=== PATIENT | female | born 1950 | race Caucasian/White ===

== ENCOUNTER 2017-06-04 14:40 | Outpatient (CLI) | payer MEDICARE, OTHER ==
[2017-06-04 19:27] LABS: BASOPHILS % (AUTO) 0.5 %; EOSINOPHILS # (AUTO) 0.2 10^3/uL (0.0-0.7); EOSINOPHILS % (AUTO) 2.8 %; HCT - HEMATOCRIT 42.9 % (37.0-47.0); HGB - HEMOGLOBIN 14.2 g/dL (12.0-16.0); LYMPHOCYTES # (AUTO) 2.1 10^3/uL (1.5-3.5); LYMPHOCYTES % (AUTO) 27.2 %; MEAN CORPUSCULAR HEMOGLOBIN 31.2 pg (27.0-31.0); MEAN CORPUSCULAR HGB CONC 33.2 g/dL (32.0-36.0); MEAN PLATELET VOLUME 8.8 fL (7.9-10.8); MONOCYTES # (AUTO) 0.5 10^3/uL (0.0-1.0); MONOCYTES % (AUTO) 6.3 %; NEUTROPHILS # (AUTO) 4.8 10^3/uL (1.5-6.6); NEUTROPHILS % (AUTO) 63.2 %; NUCLEATED RED BLOOD CELLS AUTO 0.1 /100WBC; RED BLOOD COUNT 4.56 10^6/uL (4.20-5.40); RED CELL DISTRIBUTION WIDTH 12.6 % (12.0-15.0); UNCORRECTED WHITE BLOOD COUNT 7.6 x10^3/uL; WHITE BLOOD COUNT 7.6 x10^3/uL (4.8-10.8)
[2017-06-04 19:56] LABS: ALBUMIN/GLOBULIN RATIO 1.4 (1.0-2.2); BILIRUBIN,TOTAL 0.7 mg/dL (0.2-1.0); BUN - BLOOD UREA NITROGEN 10 mg/dL (6-20); CALCIUM 8.8 mg/dL (8.5-10.3); CARBON DIOXIDE - CO2 27 mmol/L (21-32); CHLORIDE 102 mmol/L (101-111); CHOL/HDL RATIO 7.3 (<4.4); CHOLESTEROL 247 mg/dL; CREATININE 0.6 mg/dL (0.4-1.0); GFR - MDRD 99 (>89); GLUCOSE 100 mg/dL (70-100); HDL CHOLESTEROL 34 mg/dL; LDL/HDL RATIO 4.7 (<4.4); SODIUM 136 mmol/L (135-145); TOTAL PROTEIN 7.3 g/dL (6.7-8.2); TRIGLYCERIDES 266 mg/dL; VLDL CHOLESTEROL 53 mg/dL
== END 2017-06-04 14:41 | disposition home or self-care (01) ==
LOC: LAB.WCP 14:40
PROVIDERS: ATTEND Physician Assistant Medical
DX: E78.5 Hyperlipidemia, unspecified (principal); R05 Cough
CPT/HCPCS: 36415; 80053; 80061; 85025

== ENCOUNTER 2018-03-14 14:42 | Outpatient (CLI) | payer MEDICARE, OTHER ==
[2018-03-14 18:46] LABS: BILIRUBIN,URINE NEGATIVE (NEGATIVE); GLUCOSE, URINE (UA) NEGATIVE (NEGATIVE); KETONES,URINE (UA) NEGATIVE (NEGATIVE); LEUKOCYTE ESTERASE, URINE NEGATIVE (NEGATIVE); NITRITE,URINE NEGATIVE (NEGATIVE); OCCULT BLOOD,URINE NEGATIVE (NEGATIVE); PH,URINE 5.5 PH (5.0-7.5); PROTEIN,URINE NEGATIVE (NEGATIVE); UROBILINOGEN,URINE 0.2 (NORMAL) E.U./dL (NORMAL)
[2018-03-14 18:48] LABS: CLARITY,URINE CLEAR (CLEAR)
[2018-03-14 18:49] LABS: BASOPHILS % (AUTO) 0.4 %; EOSINOPHILS # (AUTO) 0.2 10^3/uL (0.0-0.7); HGB - HEMOGLOBIN 13.9 g/dL (12.0-16.0); LYMPHOCYTES # (AUTO) 2.5 10^3/uL (1.5-3.5); MEAN CORPUSCULAR HEMOGLOBIN 31.1 pg (27.0-31.0); MEAN CORPUSCULAR HGB CONC 33.2 g/dL (32.0-36.0); MEAN CORPUSCULAR VOLUME 93.5 fL (81.0-99.0); MEAN PLATELET VOLUME 8.3 fL (7.9-10.8); MONOCYTES # (AUTO) 0.6 10^3/uL (0.0-1.0); MONOCYTES % (AUTO) 7.5 %; NEUTROPHILS # (AUTO) 4.2 10^3/uL (1.5-6.6); NEUTROPHILS % (AUTO) 56.1 %; PLT - PLATELET COUNT 284 10^3/uL (130-450); RED BLOOD COUNT 4.46 10^6/uL (4.20-5.40); RED CELL DISTRIBUTION WIDTH 13.3 % (12.0-15.0); WHITE BLOOD COUNT 7.5 x10^3/uL (4.8-10.8)
[2018-03-14 19:04] LABS: ALBUMIN 4.2 g/dL (3.2-5.5); ALBUMIN/GLOBULIN RATIO 1.3 (1.0-2.2); ALKALINE PHOSPHATASE 59 IU/L (42-121); ALT ALANINE AMINOTRANSFERASE 21 IU/L (10-60); AST ASPARTATE AMINOTRANSFERASE 26 IU/L (10-42); BILIRUBIN,TOTAL 0.8 mg/dL (0.2-1.0); BUN - BLOOD UREA NITROGEN 12 mg/dL (6-20); CALCIUM 9.1 mg/dL (8.5-10.3); CARBON DIOXIDE - CO2 26 mmol/L (21-32); CHLORIDE 100 mmol/L (101-111); CHOL/HDL RATIO 6.2 (<4.4); CHOLESTEROL 255 mg/dL; CREATININE 0.6 mg/dL (0.4-1.0); GFR - MDRD 99 (>89); GLUCOSE 106 mg/dL (70-100); HDL CHOLESTEROL 41 mg/dL; LDL CHOLESTEROL,CALCULATED 172 mg/dL; LDL/HDL RATIO 4.2 (<4.4); SODIUM 137 mmol/L (135-145); TOTAL PROTEIN 7.5 g/dL (6.7-8.2); VLDL CHOLESTEROL 42 mg/dL
[2018-03-14 19:05] LABS: BACTERIA,URINE Few /HPF (None Seen); RBC,URINE 0-5 /HPF (0-5); SQUAMOUS EPITHELIAL CELL,UR MOD Squamous (<= Few)
[2018-03-14 19:06] LABS: YEAST,URINE PRESENT
== END 2018-03-14 14:43 | disposition home or self-care (01) ==
LOC: LAB.WCP 14:42
PROVIDERS: ATTEND Physician Assistant Medical
DX: R73.9 Hyperglycemia, unspecified (principal); E78.5 Hyperlipidemia, unspecified; R35.0 Frequency of micturition
CPT/HCPCS: 36415; 80053; 80061; 81001; 83721; 85025; 87086

== ENCOUNTER 2019-02-11 13:00 | Outpatient (CLI) | payer MEDICARE, OTHER ==
[2019-02-11] MEDS ORDERED: ALBUTEROL NEB 2.5 MG/3 ML INH SCH (13:59)
== END 2019-02-11 13:01 | disposition home or self-care (01) ==
LOC: RT 13:00
PROVIDERS: ATTEND Physician Assistant Medical
DX: R06.02 Shortness of breath (principal); Z87.891 Personal history of nicotine dependence
CPT/HCPCS: 94060

== ENCOUNTER 2019-05-01 14:54 | Outpatient (CLI) | payer MEDICARE, OTHER ==
--- NOTE | 2019-05-02 15:54 | XRAY Report ---
Reason: COPD Procedure Date: 05/01/2019 Accession Number: [id number] / [id number] Procedure: XRN - Chest 2 View X-Ray CPT Code: 71322 FULL RESULT: EXAM: CHEST RADIOGRAPHY VIEWS EXAM DATE: 05/01/2019. CLINICAL HISTORY: COPD. COMPARISON: PA and lateral chest on 06/04/2017. TECHNIQUE: PA and lateral views. FINDINGS: Lungs/Pleura: Normal vasculature. Infiltrate in the posterior inferior right lower lobe. The left lung is clear. No pleural fluid or pneumothorax. Mediastinum: Normal cardiac and mediastinal contours. Bones: Degenerative changes of the spine. IMPRESSION: Right lower lobe infiltrate, most likely pneumonia. Recommend follow-up chest radiography in 2-3 weeks to confirm clearing. RADIA
== END 2019-05-01 14:55 | disposition home or self-care (01) ==
LOC: DI.N 14:54
PROVIDERS: ATTEND Family Medicine
DX: R91.8 Other nonspecific abnormal finding of lung field (principal)
CPT/HCPCS: 71046

== ENCOUNTER 2019-05-01 16:00 | Outpatient (CLI) | payer MEDICARE, OTHER ==
--- NOTE | 2019-05-01 16:21 | Mammography Report ---
Reason: SCREENING MAMMO Procedure Date: 05/01/2019 Accession Number: [id number] / [id number] Procedure: MGN - Screening Mammo Dig Bilat CPT Code: FULL RESULT: EXAM: Screening Mammo Dig Bilat DATE: 05/01/2019 4:03 PM CLINICAL HISTORY: New baseline TECHNIQUE: (B) - Bilateral CC and MLO views were obtained. COMPARISON: None PARENCHYMAL PATTERN: (D) - The breasts demonstrate heterogeneously dense fibroglandular parenchyma bilaterally. FINDINGS: There are no suspicious masses, calcifications, or areas of distortion. IMPRESSION: Negative examination. BI-RADS category 1. RECOMMENDATION: (ANNUAL) - Recommend routine annual screening mammography. BI-RADS CATEGORY: (1) - Negative. STANDARD QUALIFYING STATEMENTS: 1. This examination was not reviewed with the aid of Computer-Aided Detection (CAD). 2. A negative or benign imaging report should not preclude biopsy if clinically suspicious findings are present. 3. Dense breasts may obscure an underlying neoplasm. 4. This examination was reviewed without the aid of 3D breast imaging (tomosynthesis).
== END 2019-05-01 23:59 | disposition home or self-care (01) ==
LOC: DI.N 16:00
DX: Z12.31 Encounter for screening mammogram for malignant neoplasm of breast (principal)
CPT/HCPCS: 77067

== ENCOUNTER 2019-05-22 12:53 | Outpatient (CLI) | payer MEDICARE, OTHER ==
--- NOTE | 2019-05-22 15:10 | XRAY Report ---
Reason: PNEUMONIA Procedure Date: 05/22/2019 Accession Number: [id number] / [id number] Procedure: XRN - Chest 2 View X-Ray CPT Code: 61604 FULL RESULT: EXAM: CHEST RADIOGRAPHY EXAM DATE: 05/22/2019 01:07 PM. CLINICAL HISTORY: Pneumonia. COMPARISON: CHEST 2 VIEW 05/01/2019 4:04 PM. TECHNIQUE: 2 views. FINDINGS: Lungs/Pleura: There has been little change in the posterior basilar right lower lobe consolidation compared to prior examination. The lungs are otherwise clear. Stable tiny right pleural effusion. Mediastinum: Heart and mediastinal contours are unremarkable. Other: None. IMPRESSION: There has been little change in the posterior basilar right lower lobe consolidation most consistent with pneumonia. Recommend continued follow-up. Otherwise negative exam. RADIA
== END 2019-05-22 12:54 | disposition home or self-care (01) ==
LOC: DI.N 12:53
PROVIDERS: ATTEND Family Medicine
DX: J18.9 Pneumonia, unspecified organism (principal)
CPT/HCPCS: 71046

== ENCOUNTER 2019-06-12 10:55 | Outpatient (CLI) | payer MEDICARE, OTHER ==
--- NOTE | 2019-06-12 14:17 | XRAY Report ---
Reason: PNEUMONIA Procedure Date: 06/12/2019 Accession Number: [id number] / [id number] Procedure: XRN - Chest 2 View X-Ray CPT Code: 78586 FULL RESULT: EXAM: CHEST RADIOGRAPHY EXAM DATE: 06/12/2019 11:08 AM. CLINICAL HISTORY: PNEUMONIA. COMPARISON: CHEST 2 VIEW 05/22/2019 1:13 PM CHEST 2 VIEW PA/LAT 05/25/2016 3:18 PM CHEST 2 VIEW PA/LAT 06/04/2017 2:22 PM CHEST 2 VIEW 05/01/2019 4:04 PM. TECHNIQUE: 2 views. FINDINGS: Lungs/Pleura: Increasing airspace disease right base with associated pleural effusion. Clear left lung without pleural effusion. No pneumothorax.. Mediastinum: Heart size difficult to assess due to the pleural effusion. Other: None. IMPRESSION: Worsening right basilar airspace disease and associated pleural effusion compared with 05/01/2020 and 05/22/2020. Consider contrast-enhanced chest CT. RADIA
== END 2019-06-12 10:56 | disposition home or self-care (01) ==
LOC: DI.N 10:55
PROVIDERS: ATTEND Family Medicine
DX: J18.9 Pneumonia, unspecified organism (principal)
CPT/HCPCS: 71046

== ENCOUNTER 2019-06-26 11:01 | Outpatient (CLI) | payer MEDICARE, OTHER ==
[~2019-06-26 11:01] MED LIST: IOVERSOL 320 100 ML VIAL IVP ONE
[2019-06-26 11:23] LABS: CALCIUM 8.9 mg/dL (8.5-10.3); CREATININE 0.5 mg/dL (0.4-1.0)
[2019-06-26] MEDS ORDERED: IOVERSOL 320 100 ML VIAL IVP ONE ×2 (11:43→15:39)
--- NOTE | 2019-06-26 13:44 | CT Report ---
Reason: PNEUMONIA Procedure Date: 06/26/2019 Accession Number: [id number] / [id number] Procedure: CT - CHEST W CPT Code: Final Report FULL RESULT: EXAM: CT CHEST EXAM DATE: 06/26/2019 12:00 PM. CLINICAL HISTORY: Pneumonia. COMPARISONS: None. TECHNIQUE: Routine helical CT imaging was performed through the chest. IV contrast: None. Reconstructions: Coronal and sagittal. In accordance with CT protocol optimization, one or more of the following dose reduction techniques were utilized for this exam: automated exposure control, adjustment of mA and/or KV based on patient size, or use of iterative reconstructive technique. FINDINGS: Lungs/Pleura: There is a moderate to large right pleural effusion which ranges from the low density to intermediate density. No definite hematocrit level is seen. While there is small amount of subsegmental consolidation on the right, there is no lobar consolidation to suggest a significant pulmonary parenchymal etiology underlying the effusion. There is no pulmonary edema. No pneumothorax. Mediastinum: Prominent lymph nodes in the mediastinum do not meet size criteria. A prominent right hilar lymph node measures up to 1.1 cm in short axis, image 52 series 3. Bones: Unremarkable. Visualized Abdomen: Additionally, there is a small amount of perisplenic and perihepatic free fluid in the visualized abdomen. Other: None. IMPRESSION: Moderate to large right low to intermediate density pleural effusion as well as ascites without convincing pulmonary consolidation to corroborate lobar pneumonia. RADIA
== END 2019-06-26 11:02 | disposition home or self-care (01) ==
LOC: LAB 11:01
PROVIDERS: ATTEND Family Medicine
DX: E74.9 Disorder of carbohydrate metabolism, unspecified (principal); E78.00 Pure hypercholesterolemia, unspecified; R53.83 Other fatigue; J90 Pleural effusion, not elsewhere classified; R18.8 Other ascites
CPT/HCPCS: 36415; 71260; 80048; Q9967

== ENCOUNTER 2019-07-07 10:58 | Outpatient (CLI) | payer MEDICARE, OTHER ==
[2019-07-07 11:54] LABS: INR 1.1 (0.8-1.2); PT - PROTHROMBIN TIME 12.3 secs (9.9-12.6)
[2019-07-07 12:01] LABS: PARTIAL THROMBOPLASTIN TIME 33.5 secs (24.9-33.3)
== END 2019-07-07 10:59 | disposition home or self-care (01) ==
LOC: LAB 10:58
PROVIDERS: ATTEND Family Medicine
DX: J90 Pleural effusion, not elsewhere classified (principal); J18.9 Pneumonia, unspecified organism; J91.8 Pleural effusion in other conditions classified elsewhere
CPT/HCPCS: 36415; 85610; 85730

== ENCOUNTER 2019-07-14 14:46 | Outpatient (CLI) | payer MEDICARE, OTHER ==
[2019-07-14 18:37] LABS: BASOPHILS % (AUTO) 0.4 %; EOSINOPHILS # (AUTO) 0.2 10^3/uL (0.0-0.7); EOSINOPHILS % (AUTO) 3.6 %; HGB - HEMOGLOBIN 14.2 g/dL (12.0-16.0); LYMPHOCYTES # (AUTO) 1.7 10^3/uL (1.5-3.5); MEAN CORPUSCULAR HEMOGLOBIN 29.8 pg (27.0-31.0); MEAN CORPUSCULAR VOLUME 93.3 fL (81.0-99.0); MEAN PLATELET VOLUME 10.1 fL (7.9-10.8); MONOCYTES # (AUTO) 0.6 10^3/uL (0.0-1.0); MONOCYTES % (AUTO) 11.9 %; NEUTROPHILS # (AUTO) 2.5 10^3/uL (1.5-6.6); NEUTROPHILS % (AUTO) 49.9 %; PLT - PLATELET COUNT 312 10^3/uL (130-450); RED BLOOD COUNT 4.76 10^6/uL (4.20-5.40); RED CELL DISTRIBUTION WIDTH 12.7 % (12.0-15.0)
== END 2019-07-14 23:59 | disposition home or self-care (01) ==
LOC: LAB.N 14:46
PROVIDERS: ATTEND Family Medicine
DX: Z00.00 Encounter for general adult medical examination without abnormal findings (principal); J18.9 Pneumonia, unspecified organism
CPT/HCPCS: 36415; 85025

== ENCOUNTER 2020-03-05 14:30 | Outpatient (CLI) | payer MEDICARE, OTHER ==
[2020-03-05 15:02] LABS: BASOPHILS % (AUTO) 0.3 %; EOSINOPHILS # (AUTO) 0.2 10^3/uL (0.0-0.7); EOSINOPHILS % (AUTO) 2.9 %; HGB - HEMOGLOBIN 13.7 g/dL (12.0-16.0); LYMPHOCYTES # (AUTO) 2.3 10^3/uL (1.5-3.5); LYMPHOCYTES % (AUTO) 35.5 %; MEAN CORPUSCULAR HEMOGLOBIN 30.3 pg (27.0-31.0); MEAN CORPUSCULAR HGB CONC 32.5 g/dL (32.0-36.0); MEAN CORPUSCULAR VOLUME 93.1 fL (81.0-99.0); MEAN PLATELET VOLUME 9.8 fL (7.9-10.8); MONOCYTES # (AUTO) 0.5 10^3/uL (0.0-1.0); MONOCYTES % (AUTO) 7.6 %; NEUTROPHILS # (AUTO) 3.4 10^3/uL (1.5-6.6); NEUTROPHILS % (AUTO) 53.4 %; PLT - PLATELET COUNT 281 10^3/uL (130-450); RED BLOOD COUNT 4.52 10^6/uL (4.20-5.40); RED CELL DISTRIBUTION WIDTH 12.5 % (12.0-15.0); WHITE BLOOD COUNT 6.5 x10^3/uL (4.8-10.8)
[2020-03-05 15:04] LABS: ALBUMIN 4.2 g/dL (3.2-5.5); ALBUMIN/GLOBULIN RATIO 1.6 (1.0-2.2); BILIRUBIN,TOTAL 0.5 mg/dL (0.2-1.0); CALCIUM 8.9 mg/dL (8.5-10.3); CREATININE 0.6 mg/dL (0.4-1.0); TOTAL PROTEIN 6.9 g/dL (6.7-8.2)
== END 2020-03-05 14:31 | disposition home or self-care (01) ==
LOC: LAB 14:30
PROVIDERS: ATTEND Internal Medicine
DX: J90 Pleural effusion, not elsewhere classified (principal); Z13.6 Encounter for screening for cardiovascular disorders; Z79.899 Other long term (current) drug therapy; R19.00 Intra-abdominal and pelvic swelling, mass and lump, unspecified site; Z11.59 Encounter for screening for other viral diseases
CPT/HCPCS: 36415; 80053; 85025; U0004

== ENCOUNTER 2021-07-02 09:49 | Outpatient (CLI) | payer MEDICARE, OTHER | END 2021-07-02 09:50 | disposition home or self-care (01) | LOC: DI.N 09:49 | PROVIDERS: ATTEND Internal Medicine | DX: Z53.9 Procedure and treatment not carried out, unspecified reason (principal) ==

== ENCOUNTER 2021-07-21 13:03 | Outpatient (CLI) | payer MEDICARE, OTHER ==
--- NOTE | 2021-07-21 13:35 | XRAY Report ---
PROCEDURE: Chest 2 View X-Ray INDICATIONS: DYSPNEA TECHNIQUE: 2 view(s) of the chest. COMPARISON: CT chest 06/26/2019. FINDINGS: Surgical changes and devices: None. Lungs and pleura: No pleural effusions or pneumothorax. Lungs are clear. Mediastinum: Mediastinal contours are normal. Heart size is normal. Bones and chest wall: No suspicious bony abnormalities. Soft tissues appear unremarkable. IMPRESSION: No acute cardiopulmonary abnormality. Reviewed by: Karri Caicedo MD on 07/21/2021 1:34 PM PST Approved by: Karri Caicedo MD on 07/21/2021 1:34 PM PST Station ID: [id number]
== END 2021-07-21 13:04 | disposition home or self-care (01) ==
LOC: DI.N 13:03
PROVIDERS: ATTEND Internal Medicine
DX: R06.00 Dyspnea, unspecified (principal)

== ENCOUNTER 2021-10-21 08:00 | Outpatient (CLI) | payer MEDICARE, OTHER ==
[2021-10-21 16:23] LABS: BILIRUBIN,URINE NEGATIVE (NEGATIVE); GLUCOSE, URINE (UA) NEGATIVE (NEGATIVE); KETONES,URINE (UA) NEGATIVE (NEGATIVE); LEUKOCYTE ESTERASE, URINE NEGATIVE (NEGATIVE); NITRITE,URINE NEGATIVE (NEGATIVE); OCCULT BLOOD,URINE NEGATIVE (NEGATIVE); PH,URINE 5.5 PH (5.0-7.5); PROTEIN,URINE NEGATIVE (NEGATIVE); UROBILINOGEN,URINE 0.2 (NORMAL) E.U./dL (NORMAL)
[2021-10-21 16:24] LABS: CLARITY,URINE CLEAR (CLEAR)
[2021-10-21 16:35] LABS: BACTERIA,URINE None Seen /HPF (None Seen); RBC,URINE None Seen /HPF (0-5); SQUAMOUS EPITHELIAL CELL,UR RARE Squamous (<= Few); WBC,URINE 0-3 /HPF (0-5)
== END 2021-10-21 23:59 | disposition home or self-care (01) ==
LOC: LAB.R 08:00
PROVIDERS: ATTEND Internal Medicine
DX: R35.0 Frequency of micturition (principal); R53.1 Weakness
CPT/HCPCS: 81001; 87086

== ENCOUNTER 2021-10-31 14:32 | Outpatient (CLI) | payer MEDICARE, OTHER ==
--- NOTE | 2021-10-31 20:37 | Ultrasound Report ---
PROCEDURE: Head or Neck Soft Tissue INDICATIONS: THYROID NODULE TECHNIQUE: Real-time scanning was performed of the thyroid gland, with image documentation. COMPARISON: None FINDINGS: Right: Thyroid lobe measures 3.8 x 1.8 x 1.8 cm, and is homogeneous in echotexture. Left: Thyroid lobe measures 4.6 x 2.5 x 2.5 cm, and is homogenous in echotexture. Isthmus: 4 mm thick. Nodule number: One Location: Right superior mid thyroid lobe Size: 0.9 x 0.6 x 0.8 cm. Composition: Solid Echogenicity: Hypoechoic Shape: wider than tall. Margins: Smooth Echogenic foci: Punctate echogenic foci Total points: 7 ACR TI-RADS category: 5 (highly suspicious) Nodule number: Two Location: Right superior mid lateral thyroid lobe Size: 0.6 x 0.3 x 0.3 cm. Composition: Solid Echogenicity: Hypoechoic Shape: wider than tall. Margins: Smooth Echogenic foci: Punctate Total points: 7 ACR TI-RADS category: 5 (highly suspicious) Nodule number: Three Location: Left mid inferior Size: 2.4 x 2.4 x 2.2 cm. Composition: Solid Echogenicity: Hyperechoic Shape: wider than tall. Margins: Smooth Echogenic foci: None Total points: 3 ACR TI-RADS category: 3 (mildly suspicious) Nodule number: Four Location: Left mid medial Size: 0.8 x 0.7 x 0.7 cm. Composition: Cystic Echogenicity: Anechoic Shape: wider than tall. Margins: Smooth Echogenic foci: None Total points: 0 ACR TI-RADS category: 0 (benign) IMPRESSION: Multiple bilateral thyroid nodules described above with right-sided thyroid nodules singh gorized as TI-RADS 5 (highly suspicious) nodules. These do not meet consensus criteria for fine-needl e aspiration. As detailed below, a follow-up thyroid ultrasound in one year is recommended. ACR TI-RADS definitions and recommendations: TI-RADS 1 (benign): 0 points. FNA not needed. TI-RADS 2 (not suspicious): 2 points. FNA not needed. TI-RADS 3 (mildly suspicious): 3 points. "FNA if 2.5 cm or larger, follow up if 1.5 cm or larger (at 1, 3, and 5 years). TI-RADS 4 (moderately suspicious): 4-6 points. "FNA if 1.5 cm or larger, follow up if 1 cm or larger (at 1, 2, 3, and 5 years). TI-RADS 5 (highly suspicious): 7 points or more. "FNA if 1 cm or larger, follow up if 0.5 cm or larger (every year for 5 years). Reviewed by: Piotr Ramos MD on 10/31/2021 8:36 PM PST Approved by: Piotr Ramos MD on 10/31/2021 8:36 PM PST Station ID: [id number]
== END 2021-10-31 14:33 | disposition home or self-care (01) ==
LOC: DI 14:32
PROVIDERS: ATTEND Internal Medicine
DX: E04.2 Nontoxic multinodular goiter (principal)

== ENCOUNTER 2022-03-13 10:51 | Outpatient (CLI) | payer MEDICARE, OTHER ==
--- NOTE | 2022-03-13 11:15 | CT Report ---
PROCEDURE: HEAD WO INDICATIONS: Confusion TECHNIQUE: Noncontrast 4.5 mm thick angled axial sections acquired from the foramen magnum to the vertex. For r adiation dose reduction, the following was used: automated exposure control, adjustment of mA and/or kV according to patient size. COMPARISON: None. FINDINGS: Image quality: Excellent. CSF spaces: Basal cisterns are patent. No extra-axial fluid collections. Ventricles are normal in size and shape. Brain: No midline shift. No intracranial masses or hemorrhage. Manning-white matter interface is norm al. Skull and face: Calvarium and visualized facial bones are intact, without suspicious lesions. Sinuses: Visualized sinuses and mastoids are clear. IMPRESSION: No acute intracranial finding. Reviewed by: Mata Rodriguez MD on 03/13/2022 11:13 AM PDT Approved by: Mata Rodriguez MD on 03/13/2022 11:13 AM PDT Station ID: [id number]
== END 2022-03-13 10:52 | disposition home or self-care (01) ==
LOC: DI 10:51
PROVIDERS: ATTEND Internal Medicine
DX: R41.0 Disorientation, unspecified (principal)

== ENCOUNTER 2022-06-11 10:12 | Outpatient (CLI) | payer MEDICARE, OTHER ==
--- NOTE | 2022-06-12 09:45 | Mammography Report ---
BILATERAL DIGITAL SCREENING MAMMOGRAM 3D/2D: 06/11/2022 CLINICAL: Family history of breast cancer. Routine screening. Comparison is made to exam dated: 05/01/2019 mammogram - [facility]. There are scattered areas of fibroglandular density in both breasts (category b / 25%-50% glandular t issue). There is an irregular high density asymmetry with a spiculated margin in the right breast at 9 o'cloc k anterior depth. This is more prominent. No other significant masses, calcifications, or other findings are seen in either breast. IMPRESSION: INCOMPLETE: NEEDS ADDITIONAL IMAGING EVALUATION The irregular high density asymmetry in the right breast is indeterminate. Additional views with pos sible ultrasound are recommended. Based on the Tyrer Cuzick model (a risk assessment model) the patients lifetime risk is 6.0% and her 10 year risk is 4.9%. According to the ACR, ACS, and NCCN guidelines, an annual breast MRI exam sabra g with mammogram is recommended if the patients lifetime risk is 20% or greater. This exam was interpreted at Station ID: [id number]. NOTE: For mammograms, a report in lay terms will be sent to the patient. Approximately 15% of breast malignancies will not be visualized mammographically. In the management of a palpable breast mass, a negative mammogram must not discourage biopsy of a clinically suspicious lesion. Electronically Signed By: Khalida campa/kayleigh:06/11/2022 21:20:35 ACR BI-RADS Category 0: Incomplete 3340F PARENCHYMAL PATTERN: (A) - The breast(s) demonstrate(s) scattered fibroglandular densities. BI-RADS CATEGORY: (0) - 0 Mammo and [place] [id number] Immediate follow-up LATERALITY: (B)
== END 2022-06-11 10:13 | disposition home or self-care (01) ==
LOC: DI.N 10:12
PROVIDERS: ATTEND Internal Medicine
DX: Z12.31 Encounter for screening mammogram for malignant neoplasm of breast (principal); Z80.3 Family history of malignant neoplasm of breast; R92.8 Other abnormal and inconclusive findings on diagnostic imaging of breast

== ENCOUNTER 2022-06-17 13:31 | Outpatient (CLI) | payer MEDICARE, OTHER | END 2022-06-17 13:32 | disposition home or self-care (01) | LOC: LAB.N 13:31 | PROVIDERS: ATTEND Internal Medicine | DX: Z00.00 Encounter for general adult medical examination without abnormal findings (principal); R41.82 Altered mental status, unspecified; F32.A Depression, unspecified; R06.00 Dyspnea, unspecified; R03.0 Elevated blood-pressure reading, without diagnosis of hypertension; R53.83 Other fatigue; K21.9 Gastro-esophageal reflux disease without esophagitis; J30.2 Other seasonal allergic rhinitis; E04.1 Nontoxic single thyroid nodule | CPT/HCPCS: 36415; 86780 ==

== ENCOUNTER 2022-08-06 10:43 | Outpatient (CLI) | payer MEDICARE, OTHER ==
--- NOTE | 2022-08-07 11:38 | Mammography Report ---
UNILATERAL RIGHT DIGITAL DIAGNOSTIC MAMMOGRAM 3D/2D WITH SPOT COMPRESSION: 08/06/2022 CLINICAL: Patient returns today to evaluate a focal asymmetry in the right breast. Comparison is made to exams dated: 06/11/2022 mammogram and 05/01/2019 mammogram - [facility]. There are scattered areas of fibroglandular density in the right breast (category b / 25%-50% glandul ar tissue). There is a possible irregular equal density focal asymmetry in the right breast at 9 o'clock anterior depth. This is less prominent. No other significant masses or calcifications are seen in the breast. IMPRESSION: INCOMPLETE: NEEDS ADDITIONAL IMAGING EVALUATION The possible irregular equal density focal asymmetry in the right breast resembles fibroglandular tis khris and is indeterminate. An ultrasound is recommended. Based on the Tyrer Cuzick model (a risk assessment model) the patients lifetime risk is 6.0% and her 10 year risk is 4.9%. According to the ACR, ACS, and NCCN guidelines, an annual breast MRI exam sabra g with mammogram is recommended if the patients lifetime risk is 20% or greater. This exam was interpreted at Station ID: [id number]. NOTE: For mammograms, a report in lay terms will be sent to the patient. Approximately 15% of breast malignancies will not be visualized mammographically. In the management of a palpable breast mass, a negative mammogram must not discourage biopsy of a clinically suspicious lesion. Electronically Signed By: August wilson/kayleigh:08/06/2022 15:26:31 ACR BI-RADS Category 0: Incomplete 3340F PARENCHYMAL PATTERN: (A) - The breast(s) demonstrate(s) scattered fibroglandular densities. BI-RADS CATEGORY: (0) - 0 Ultrasound [id number] Immediate follow-up LATERALITY: (R)
--- NOTE | 2022-08-07 11:38 | Ultrasound Report ---
LIMITED ULTRASOUND OF RIGHT BREAST: 08/06/2022 CLINICAL: Patient returns today to evaluate a focal asymmetry in the right breast. Comparison is made to exams dated: 08/06/2022 mammogram, 06/11/2022 mammogram, and 05/01/2019 mammogra [facility]. Real-time ultrasound of the right breast 9 o'clock region was performed. Manning scale images of the re al-time examination were reviewed. Fibroglandular tissue but no mass is identifed in the area of the mammographic asymmetry in the right breast 9 o'clock position. IMPRESSION: NEGATIVE No sonographic abnormality is seen corresponding to the mammographic asymmetry in the right breast 9 o'clock position, which is compatible with normal fibroglandular tissue. There is no sonographic evidence of malignancy. Return to annual mammogram screening schedule is recommended. This exam was interpreted at Station ID: [id number]. Electronically Signed By: August Hopkins M.D. ar/:08/06/2022 15:28:07 Ultrasound BI-RADS: 1 Negative BI-RADS CATEGORY: (1) - 1 Mammogram [id number] return to screening LATERALITY: (B)
== END 2022-08-06 10:44 | disposition home or self-care (01) ==
LOC: DI 10:43
PROVIDERS: ATTEND Internal Medicine
DX: R92.8 Other abnormal and inconclusive findings on diagnostic imaging of breast (principal)

== ENCOUNTER 2023-07-16 08:42 | Outpatient (CLI) | payer MEDICARE, OTHER ==
--- NOTE | 2023-07-16 10:31 | CT Report ---
PROCEDURE: Low Dose Lung Cancer Screen INDICATIONS: HIST OF TOBACCO USE TECHNIQUE: A CT scan of the chest was performed. Intravenous contrast media was not administered. Images were re corded and evaluated at appropriate window settings. Reformats: axial MIP of the chest, coronal and s agittal. For radiation dose reduction, the following was used: automated exposure control, adjustment of mA and/or kV according to patient size. COMPARISON: 06/26/2019 FINDINGS: Image quality: Good, allowing for low radiation dose Lungs and pleura:No consolidation, pleural effusion, or suspicious pulmonary nodule. Small areas of s carring/atelectasis present. There are micronodules, for example on the right 8/111. No nodules ident ified measuring over 3 mm. Small right Bochdalek's hernia. Mediastinum, heart, and esophagus: No hiatal hernia. Normal heart size. Coronary calcifications. Ther e are annular calcifications. No pathologic lymph nodes by size criteria. Chest wall and thyroid: Left thyroid nodule measures over 1.5 cm. Chest wall is unremarkable. Upper abdomen: Cholelithiasis. No gross abnormality on this low-dose noncontrast images. Bones: No acute or suspicious osseous finding. IMPRESSION: Lung RADS 2: Continue annual screening. There are coronary calcifications. Left thyroid nodules over 1.5 cm, consider nonemergent sonographic follow-up. Cholelithiasis. Reviewed by: Kyler Beaulieu MD on 07/16/2023 10:29 AM [facility] Approved by: Kyler Beaulieu MD on 07/16/2023 10:29 AM PST Station ID: [id number]
--- NOTE | 2023-07-16 15:04 | Ultrasound Report ---
PROCEDURE: Head or Neck Soft Tissue INDICATIONS: THYROID NODULE TECHNIQUE: Real-time scanning was performed of the thyroid gland, with image documentation. COMPARISON: Ultrasound 10/31/2021 FINDINGS: Right: Thyroid lobe measures 4.5 x 1.7 x 2.3 cm, and is homogeneous in echotexture. Left: Thyroid lobe measures 4.6 x 2.9 x 1.9 cm, and is homogenous in echotexture. Isthmus: 4 mm thick. Nodule number: One Location: Right superior pole Size: 0.4 cm. Previously 0.9 cm. Composition: Solid (2 points). Echogenicity: Hypoechoic (2 points). Shape: wider than tall (0 points). Margins: Smooth (0 points). Echogenic foci: None (0 points). Total points: 4 ACR TI-RADS category: TI-RADS 4: Moderately suspicious. Nodule number: Two Location: Right midpole Size: 0.7 x 0.4 x 0.3 cm. Previously 0.6 x 0.3 x 0.3 centimeter. Composition: Solid (2 points). Echogenicity: Hypoechoic (2 points). Shape: wider than tall (0 points). Margins: Smooth (0 points). Echogenic foci: None (0 points). Total points: 4 ACR TI-RADS category: TI-RADS 4: Moderately suspicious. Nodule number: Three Location: Left midpole Size: 2.2 x 2.5 x 2.5 cm. Previously 2.4 x 2.4 x 2.2 centimeter. Composition: Solid (2 points). Echogenicity: Hyperechoic (1 point). Shape: wider than tall (0 points). Margins: Smooth (0 points). Echogenic foci: None (0 points). Total points: 3 ACR TI-RADS category: TI-RADS 3: Mildly suspicious. Nodule number: Four Location: Right midpole Size: 0.9 cm. Composition: Cystic / almost completely cystic (0 points). Echogenicity: Anechoic (0 points). Shape: wider than tall (0 points). Margins: Smooth (0 points). Echogenic foci: None (0 points). Total points: 0 ACR TI-RADS category: TI-RADS 1: Benign. IMPRESSION: The previously described TI-RADS 5 lesions in the right thyroid lobe no longer demonstrate internal p unctate echogenicity. These are downgraded to TI-RADS 4. Slight interval growth of the TI-RADS 3 nodule in the left thyroid. This does meet size criteria for biopsy at this time. ACR TI-RADS definitions and recommendations: TI-RADS 1 (benign): 0 points. FNA not needed. TI-RADS 2 (not suspicious): 2 points. FNA not needed. TI-RADS 3 (mildly suspicious): 3 points. - FNA if 2.5 cm or larger, follow up if 1.5 cm or larger (at 1, 3, and 5 years). TI-RADS 4 (moderately suspicious): 4-6 points. - FNA if 1.5 cm or larger, follow up if 1 cm or larger (at 1, 2, 3, and 5 years). TI-RADS 5 (highly suspicious): 7 points or more. - FNA if 1 cm or larger, follow up if 0.5 cm or larger (every year for 5 years). Reviewed by: Héctor Gregory on 07/16/2023 3:03 PM PST Approved by: Héctor Gregory on 07/16/2023 3:03 PM PST Station ID: [id number]
== END 2023-07-16 08:43 | disposition home or self-care (01) ==
LOC: DI 08:42
PROVIDERS: ATTEND Nurse Practitioner
DX: Z12.2 Encounter for screening for malignant neoplasm of respiratory organs (principal); I25.10 Atherosclerotic heart disease of native coronary artery without angina pectoris; E04.2 Nontoxic multinodular goiter; Z87.891 Personal history of nicotine dependence

== ENCOUNTER 2023-08-10 08:45 | Outpatient (CLI) | payer MEDICARE, OTHER ==
--- NOTE | 2023-08-10 07:48 | CARDIAC PROCEDURE NOTE ---
Stress Test Report Service Date: 08/10/23 Service Time: 09:30 Ordering Provider: Kisha Tomlinson ARNP Indication for Test: Assess worsening exertional dyspnea. Significant Medical History: Sanjuanita is referred for a treadmill stress echocardiogram today to evaluate exertional dyspnea and fatigue. She has a a long prior tobacco smoking history, though quit 20 years ago. Her records indicate abnormal spirometry in 2019 and the possibility of COPD, but she is not familiar with this term. She was reasonably active earlier in her life, doing weight lifting, bicycling and swimming. She says that about 3 years ago she had a worsening in functional status following a hysterectomy, around which time a pleural effusion was noted, for which she underwent thoracentesis. She also believes COVID may have contributed to her decline. She was seen at an Emergency Department in [place] approximately 2 years ago, at which time a BNP level was reportedly elevated to 181. Although she still has to pace herself and generally avoids hills and stai rs when possible, in recent times she feels that her stamina has actually improved somewhat with the use of a walker, that helps stabilize her gait and allows her to walk her 18 pound dog with a greater sense of security. She does not experience exertional chest discomfort, lightheadedness or extremity swelling. She notes that she is awaiting a thyroid biopsy this spring to assess a nodule(s) and also will be going to a vision clinic in [place] for cataract replacement sometime in the new year. Cardiac Risk Factors: She has had elevated blood pressure in the past, though not currently treated; mixed hyperlipidemia, not currently treated (lipid panel in 01/12 included TC 248, LDLc 154, HDLc 45, TG ~245); she has family history of a paternal grandfather with an TX in his 50s but she is not aware of other family members with heart disease; she does not have known diabetes. She was a tobacco smoker for more than 20 years but quit many years ago, so time has likely mitigated this risk factor somewhat. Type of Stress Test: ETT with Echocardiography Procedure: -Exercise Treadmill Test- After signing informed consent, the patient underwent echo imaging at rest and then performed treadmill exercise using a Modified Guillermo protocol. The patient exercised for 5 minutes 37 seconds and achieved a peak heart rate of 126 (86 percent predicted maximum heart rate for age), and an estimated workload of 3.5 METS. The test was terminated due to fatigue/shortness of breath. Resting heart rate: 86 Peak heart rate: 126 Normal response to exercise. Resting BP: 130/74 Peak BP: 189/71 Normal BP response to exercise. Rhythm during exercise: Sinus rhythm throughout, without documented ectopy. Symptoms: Dyspnea became limiting, but she described no chest pressure/discomfort/pain. EKG at rest showed normal sinus rhythm, normal in all aspects. EKG at peak stress showed J-point depression with upsloping ST segments, NOT meeting diagnostic criteria for ischemia. In Recovery blood pressure increased to peak level from exertional maximum of 167/76, then decreased to baseline; heart rate normally/rapidly returned towards baseline level. Echo imaging, performed at rest and with stress, will be reported separately. I, Harinder Mccallum MD, was present throughout this treadmill stress study and supervised it in its entirety. Summary: 1) Exercise tolerance markedly reduced for age and sex, with ANÍBAL extrapolated to the Guillermo protocol as ~30%, though for modified Guillermo protocol it calculated to about average. 2) Normal resting EKG. 3) Adequate level of exercise was achieved on this treadmill stress test. 4) Normal BP response to exercise. 5) No ischemic changes by EKG criteria were seen at peak stress. 6) Echo image interpretation reveals normal resting left ventricular size and systolic function, with mild concentric left ventricular hypertrophy. With exercise there was appropriate hyperdynamic augmentation of all segments, indicating no evidence of prior infarct or inducible ischemia. No significant valvular abnormality or elevation of estimated pulmonary artery systolic pressure seen on screening study. See separate report for more details. Conclusions and Recommendations: 1) Sanjuanita's exercise time and METs achieved were significantly reduced for age and sex, however there was no symptom, EKG or echocardiographic evidence of inducible ischemia and no significant oxygen desaturation. 2) She decribes improved exertional tolerance over the past several months with use of a walker and it should be safe for her to try to improve it further. Her present limitation could be due to a combination of deconditioning and obstructive lung disease. I recommended that she discuss with her provider further pulmonary evaluation with updated Pulmonary Function Tests, the use of a regular inhaler regimen and possible Pulmonology evaluation as appropriate.
== END 2023-08-10 08:46 | disposition home or self-care (01) ==
LOC: DI 08:45
PROVIDERS: ATTEND Nurse Practitioner
DX: R06.02 Shortness of breath (principal); E78.2 Mixed hyperlipidemia; Z87.891 Personal history of nicotine dependence; Z82.49 Family history of ischemic heart disease and other diseases of the circulatory system
CPT/HCPCS: 93350

== ENCOUNTER 2023-10-28 06:57 | Outpatient (CLI) | payer MEDICARE, OTHER ==
[~2023-10-28 06:57] MED LIST changes: -IOVERSOL 320 100 ML VIAL IVP ONE; +LIDOCAINE-MPF 1% 5 ML VIAL ONE
== END 2023-10-28 23:59 | disposition home or self-care (01) ==
LOC: DI 06:57
PROVIDERS: ATTEND Nurse Practitioner
DX: Z53.9 Procedure and treatment not carried out, unspecified reason (principal)

== ENCOUNTER 2023-11-03 09:43 | Outpatient (CLI) | payer MEDICARE, OTHER ==
--- NOTE | 2023-11-03 11:36 | DEXA Report ---
PROCEDURE: Dexa Spine and/or Hip INDICATIONS: POST MENOPAUSAL TECHNIQUE: Dual energy x-ray absorptiometry (DXA) was performed on a [employer] System. Regions measur ed are the AP Spine, femoral neck, and if needed forearm. COMPARISON: None FINDINGS: Lumbar Spine: Bone Mineral Density: 1.226 g/cm/cm,T score: 0.4. Left Femoral Neck: Bone Mineral Density: 0.731 g/cm/cm, T score: -2.2. Left Hip: Bone Mineral Density: 0.849 g/cm/cm,T score: -1.3. (T score greater or equal to -1.0: NORMAL) (T score from -1.1 to -2.4: OSTEOPENIA) (T score less than or equal to -2.5 to: OSTEOPOROSIS) Impression: By WHO criteria, this patient has low bone density (osteopenia). Patients with diagnosis of osteoporosis or osteopenia should have regular bone mineral density assess ment. For those eligible for Medicare, routine testing is allowed once every 2 years. Testing frequ ency can be increased for patients who have rapidly progressing disease or for those who are receivin g medical therapy to restore bone mass. Reviewed by: Jaciel Santos MD on 11/03/2023 11:34 AM PDT Approved by: Jaciel Santos MD on 11/03/2023 11:34 AM PDT Station ID: [id number]
== END 2023-11-03 09:44 | disposition home or self-care (01) ==
LOC: DI 09:43
PROVIDERS: ATTEND Nurse Practitioner
DX: M85.89 Other specified disorders of bone density and structure, multiple sites (principal); Z78.0 Asymptomatic menopausal state

== ENCOUNTER 2023-11-04 10:30 | Outpatient (CLI) | payer MEDICARE, OTHER ==
[2023-11-04] MEDS: ALBUTEROL 1 PUFF INH STA (12:04)
== END 2023-11-04 10:31 | disposition home or self-care (01) ==
LOC: RT 10:30
PROVIDERS: ATTEND Nurse Practitioner
DX: R06.02 Shortness of breath (principal)
CPT/HCPCS: 94060; 94729

== ENCOUNTER 2024-02-02 09:31 | Outpatient (CLI) | payer MEDICARE, OTHER ==
[2024-02-02] MEDS ORDERED: LIDOCAINE-MPF 1% 5 ML VIAL ONE (10:05)
--- NOTE | 2024-02-02 22:59 | Ultrasound Report ---
PROCEDURE: Soft Tissue Head or Neck INDICATIONS: THYROID NODULE TECHNIQUE: Real-time scanning was performed of the thyroid gland, with image documentation. COMPARISON: Thyroid ultrasound 07/16/2023, 10/31/2021 FINDINGS: Prior to commencement of thyroid FNA, risks and benefits were discussed with the patient. Secondary t o multiple factors, the patient did not wish to proceed with FNA today. It was explained that the les ion has demonstrated mild interval growth since 2021 and FNA should be obtained. Patient wished to de brennan 26 month imaging follow-up in July for further evaluation assessment at that point. IMPRESSION: FNA canceled with recommendation for six-month imaging follow-up. Reviewed by: Susy Cody MD on 02/02/2024 10:58 PM PDT Approved by: Susy Cody MD on 02/02/2024 10:58 PM PDT Station ID: [id number]
== END 2024-02-02 09:32 | disposition home or self-care (01) ==
LOC: DI 09:31
PROVIDERS: ATTEND Nurse Practitioner
DX: E04.1 Nontoxic single thyroid nodule (principal)

== ENCOUNTER 2024-02-15 15:16 | Outpatient (CLI) | payer MEDICARE, OTHER ==
[2024-02-15 17:56] LABS: BASOPHILS % (AUTO) 0.4 %; EOSINOPHILS # (AUTO) 0.2 10^3/uL (0.0-0.7); HCT - HEMATOCRIT 41.4 % (37.0-47.0); HGB - HEMOGLOBIN 13.5 g/dL (12.0-16.0); LYMPHOCYTES # (AUTO) 2.1 10^3/uL (1.5-3.5); LYMPHOCYTES % (AUTO) 28.5 %; MEAN CORPUSCULAR HEMOGLOBIN 29.6 pg (27.0-31.0); MEAN CORPUSCULAR HGB CONC 32.6 g/dL (32.0-36.0); MEAN CORPUSCULAR VOLUME 90.8 fL (81.0-99.0); MEAN PLATELET VOLUME 10.5 fL (7.9-10.8); MONOCYTES # (AUTO) 0.5 10^3/uL (0.0-1.0); MONOCYTES % (AUTO) 6.5 %; NEUTROPHILS # (AUTO) 4.6 10^3/uL (1.5-6.6); NEUTROPHILS % (AUTO) 61.3 %; PLT - PLATELET COUNT 302 10^3/uL (130-450); RED BLOOD COUNT 4.56 10^6/uL (4.20-5.40); RED CELL DISTRIBUTION WIDTH 12.2 % (12.0-15.0); WHITE BLOOD COUNT 7.4 x10^3/uL (4.8-10.8)
[2024-02-15 18:14] LABS: ALBUMIN 4.4 g/dL (3.2-5.5); ALBUMIN/GLOBULIN RATIO 1.8 (1.0-2.2); ALKALINE PHOSPHATASE 80 IU/L (42-121); ALT ALANINE AMINOTRANSFERASE 16 IU/L (10-60); AST ASPARTATE AMINOTRANSFERASE 16 IU/L (10-42); BILIRUBIN,TOTAL 0.4 mg/dL (0.2-1.0); BUN - BLOOD UREA NITROGEN 14 mg/dL (6-20); CALCIUM 9.8 mg/dL (8.5-10.3); CARBON DIOXIDE - CO2 28 mmol/L (21-32); CHLORIDE 106 mmol/L (101-111); CHOL/HDL RATIO 5.9 (<4.4); CHOLESTEROL 232 mg/dL; CREATININE 0.6 mg/dL (0.6-1.3); GFR - MDRD 97 (>89); GLUCOSE 102 mg/dL (74-104); HDL CHOLESTEROL 39 mg/dL; LDL CHOLESTEROL,CALCULATED 153 mg/dL; LDL/HDL RATIO 3.9 (<4.4); POTASSIUM 3.7 mmol/L (3.5-4.5); SODIUM 141 mmol/L (135-145); TOTAL PROTEIN 6.9 g/dL (6.4-8.9); TRIGLYCERIDES 200 mg/dL (48-352); VLDL CHOLESTEROL 40 mg/dL
[2024-02-15 18:33] LABS: THYROID STIMULATING HORMONE 1.73 uIU/mL (0.34-5.60)
[2024-02-15 21:13] LABS: ESTIMATED AVERAGE GLUCOSE 111 mg/dL (70-100); HEMOGLOBIN A1c% 5.5 % (4.27-6.07)
== END 2024-02-15 15:17 | disposition home or self-care (01) ==
LOC: LAB.N 15:16
PROVIDERS: ATTEND Nurse Practitioner
DX: I10 Essential (primary) hypertension (principal); E78.5 Hyperlipidemia, unspecified; R41.3 Other amnesia; R73.9 Hyperglycemia, unspecified; E04.1 Nontoxic single thyroid nodule
CPT/HCPCS: 36415; 80053; 80061; 82607; 83036; 83721; 84443; 85025

== ENCOUNTER 2024-02-19 12:18 | Outpatient (CLI) | payer MEDICARE, OTHER ==
--- NOTE | 2024-02-21 15:05 | MRI Report ---
PROCEDURE: MRI brain without contrast INDICATIONS: MEMORY LOSS TECHNIQUE: Multiplanar multisequential MR images of the brain were obtained without contrast COMPARISON: Prior CT brain 03/13/2022 FINDINGS: CSF Spaces: Basal cisterns are patent. No extra-axial fluid collections. Ventricles are normal in size and shape. Brain: No intracranial masses or hemorrhage. Manning/white matter interface is normal. Brainstem appe ars normal. Diffusion-weighted images shows no evidence of acute infarct. Normal intravascular flow voids are present. Skull and face: Calvarium has normal marrow signal. Orbits appear normal. Sinuses: Sinuses and mastoids are clear. IMPRESSION: Unremarkable MRI of the brain Reviewed by: Rodriguez Echeverria MD on 02/21/2024 2:04 PM [email or web address] Approved by: Rodriguez Echeverria MD on 02/21/2024 2:04 PM [email or web address] Station ID: [id number]
== END 2024-02-19 12:19 | disposition home or self-care (01) ==
LOC: DI 12:18
PROVIDERS: ATTEND Nurse Practitioner
DX: G31.84 Mild cognitive impairment of uncertain or unknown etiology (principal)